=== PATIENT | female | born 1950 | race Caucasian/White ===

== ENCOUNTER 2019-02-26 19:31 | Emergency (ER) | payer OTHER ==
[~2019-02-26] VITALS: Ht 170.2 cm; Wt 56.7 kg
--- NOTE | 2019-02-26 19:50 | NUR ---
BIB [facility] FROM HOME. PT IS AAOX3. NAD, BREATHING IS EVEN AND UNLABORED. C/O CONCERNS THAT PT IS UNABLE TO TAKE CARE OF HERSELF AT HOME. FRIEND CAME IN AT PT'S BEDSIDE. PT STATES THAT SHE IS WEAK AND HAVING PROBLEM WITH BALANCE WHEN AMBUALTING. HER FRIEND CONFIRM THAT SHE HAS BEEN WEAKER THAN USUAL AND UNABLE TO CARE FOR HERSELF AT HOME. FRIEND REPORTS THAT SHE HAVE ALSO LOST ABOUT 15 LBS IN THE PAST MONTH AND NOT EATING. PT DENIES CP, -N/V/D. PT IS AFEBRILE. PT TO ER BED 3. MD AT BEDSIDE FOR EVAL. AWAITING ORDERS
[2019-02-26 19:59] LABS: BASOPHILS # (AUTO) 0.1 /CMM (0.0-0.2); BASOPHILS % (AUTO) 1.1 % (0.0-2.0); EOSINOPHILS % (AUTO) 1.4 % (0.0-6.0); HEMATOCRIT 39 % (33-45); HEMOGLOBIN 13.1 g/dL (11.5-14.8); LYMPHOCYTES # (AUTO) 1.4 /CMM (0.8-4.8); LYMPHOCYTES % (AUTO) 15.1 % (20.0-44.0); MEAN CORPUSCULAR HGB CONC 34 g/dl (31.0-36.0); MEAN CORPUSCULAR VOLUME 96 fL (82-100); MONOCYTES # (AUTO) 0.7 /CMM (0.1-1.30); MONOCYTES % (AUTO) 7.1 % (2.0-12.0); NEUTROPHILS # (AUTO) 7.2 /CMM (1.8-8.9); NEUTROPHILS % (AUTO) 75.3 % (43.0-81.0); PLATELET COUNT (AUTO) 351 /CMM (150-450); RED BLOOD CELL COUNT(AUTO) 4.06 MIL/uL (4.0-5.2); WHITE BLOOD COUNT (AUTO) 9.6 K/uL (4.3-11.0)
[2019-02-26] MEDS ORDERED: IV NS 0.9% 1,000 ML BAG IV ONE (20:00)
--- NOTE | 2019-02-26 20:00 | NUR ---
IV OBTAINED ON R AC 20G. BLOOD DRAWN AND GIVEN TO BACTERIOLOGIST MEDICAL AT BEDSIDE.
--- NOTE | 2019-02-26 20:05 | NUR ---
EKG AT BEDSIDE
[2019-02-26 20:13] LABS: ALANINE AMINOTRANSFERASE 21 U/L (12-78); ALBUMIN 3.9 g/dL (3.4-5.0); ALKALINE PHOSPHATASE 75 U/L (46-116); ASPARTATE AMINOTRANSFERASE 18 U/L (15-37); BILIRUBIN,DIRECT 0.2 mg/dL (0.0-0.2); BILIRUBIN,TOTAL 0.9 mg/dL (0.2-1.0); CALCIUM, SERUM 10.7 mg/dL (8.5-10.1); CARBON DIOXIDE 22 mmol/L (21-32); CHLORIDE 104 mmol/L (98-107); CREATININE 1.1 mg/dL (0.6-1.3); GLUCOSE 91 mg/dL (74-106); SODIUM SERUM 138 mmol/L (136-145); TOTAL PROTEIN, SERUM 6.7 g/dL (6.4-8.2); UREA NITROGEN, BLOOD 31 mg/dL (7-18)
[2019-02-26 20:14] LABS: ACETAMINOPHEN < 2 ug/ml (10-30); ALCOHOL, BLOOD < 3 mg/dL (0-0); SALICYLATE 1.8 mg/dL (2.8-20.0)
--- NOTE | 2019-02-26 20:20 | NUR ---
PT TO RADIOLOGY
--- NOTE | 2019-02-26 20:55 | NUR ---
URINE SAMPLE COLLECTED VIA STRAIGHT CATH. STERILE TECHNIQUE OBSERVED.
--- NOTE | 2019-02-26 21:21 | NUR ---
PT ACCEPTED TO [facility] BY DR MORENO. # FOR REPORT [phone]. S TRANSPORT ETA [id number]
--- NOTE | 2019-02-26 21:32 | NUR ---
CALLED [facility] ER TO GIVEN REPORT. REPORT GIVEN TO SIMON OLGUIN.
[2019-02-26 21:42] LABS: APPEARANCE,URINE Clear (CLEAR); BILIRUBIN,URINE MODERATE (NEGATIVE); BLOOD, URINE Negative Ery/uL (NEGATIVE); COLOR,URINE Yellow (YELLOW); KETONES,URINE 40 (NEGATIVE); LEUKOCYTE ESTERASE ,URINE Negative (NEGATIVE); NITRITE, URINE Negative (NEGATIVE); PH,URINE 5.5 (5.0-8.0); PROTEIN,URINE Negative (NEGATIVE); UGLUCOSE Negative (NEGATIVE)
[2019-02-26 21:53] VITALS: BP 143/81
--- NOTE | 2019-02-26 21:56 | NUR ---
[facility] AT BEDSIDE FOR PT TRANSPORT TO [facility]. PT IN STABLE CONDITION FOR TRANSFER. NAD, BREATHING EVEN AND UNLABORED. ACCOMPANIED BY 3 AMBULANCE STAFF.
== END 2019-02-26 22:02 | disposition short-term general hospital (02) ==
LOC: ER 19:34
DX: R62.7 Adult failure to thrive (principal); F32.9 Major depressive disorder, single episode, unspecified; R41.82 Altered mental status, unspecified; Z60.2 Problems related to living alone
CPT/HCPCS: 36415; 70450; 71045; 80048; 80076; 80305; 80307; 80329; 81001; 84484; 85025; 93005; 96360; 99285; G0480; J7030; 81000-TC